=== PATIENT | female | born 1975 | race Caucasian/White ===

== ENCOUNTER 2020-10-21 06:06 | Observation (INO) ==
--- NOTE | 2020-10-04 15:55 | PAT Medication Instructions ---
Medication Instructions Date of Service October 04, 2020 Home Medications ibuprofen 600 mg PO Q6H PRN acetaminophen [Tylenol Extra Strength] 500 mg PO Q6H PRN multivitamin 1 tab PO QAM ASK your surgeon for instructions ibuprofen 600 mg PO Q6H PRN DO NOT take the morning of surgery multivitamin 1 tab PO QAM Take morning of surgery With a small sip of water, OTHERWISE NOTHING TO EAT OR DRINK AFTER MIDNIGHT: acetaminophen [Tylenol Extra Strength] 500 mg PO Q6H PRN (if needed, may be taken up to four hours before surgery) Take evening before surgery acetaminophen [Tylenol Extra Strength] 500 mg PO Q6H PRN (if needed) Other Notes If you have any questions please call us at [phone] or [phone] or [phone] or [phone]
--- NOTE | 2020-10-07 08:59 | Anesthesiology Consultation ---
Date of Service October 07, 2020 Assessment & Plan (1) Encounter for pre-operative examination: COVID Status: As of 10/07 assessment, patient denies travel to endemic area, known exposure/sick contacts, or symptoms of COVID19. Patient instructed that they and their household members must follow strict social distancing guidelines, wear a mask in public and avoid travel/events/gatherings for 14 days prior to surgery. Preoperative COVID19 testing to be completed prior to surgery per surgeon's arrangements (to be done at [facility] 10/14). Patient made aware to self- isolate as much as possible between COVID testing and surgery (pt will have to work after her COVID test and works at [employer]). Patient sent to ED for hypertensive emergency, as EKG showed possible ischemic changes. integration director notified. Wendy Ibanez notified. Event report completed. Patient evaluated in ED -- HTN felt largely 2/2 pain/anxiety. Given Dilaudid with significant improvement in BP. Referred to [facility] cardio, to be seen 10/08, and by PCP 10/09. Cardio Clearance 10/08/20 @ [facility] -- EKG done in office showed "sinus rhythm with T-wave abnormalities in the inferior and lateral leads that is most likely consistent with left ventricular hypertrophy from untreated hypertension...The patient will not be able to proceed to surgery until her blood pressure is better controlled. Albeit, some of her elevated blood pressure may be due to the pain and discomfort from her radiculopathy but she is still markedly hypertensive. " Started on Metoprolol 25mg daily. Echo ordered, to be done 10/16/20. PCP Clearance 10/09/20 @ [facility] -- "Once blood pressure is under better control, and Cardiology feels she is appropriate for surgery, I will provide clearance for her neck surgery to proceed. Lisinopril added to Metoprolol. This should help bring it down in conjunction with the other medication. I want her to get her BP rechecked in a week." Chart Review Chart Review: Acceptable Risk for Surgery (pending echo, final PCP and cardio clearances) and Patient seen in Pre Admission Testing Teaching & Discussion Instructed NPO after midnight before surgery, except medications with 15 cc of water. Medication instructions provided according to the PAT guidelines. History Surgery Operation Date: 10/21/20 11:10 Proposed Procedures p Anterior Cervical Discectomy Fusion - Chauncey Felipe, Height/Weight Height: 5 ft 1 in Weight: 104.9 kg Allergies Allergy/AdvReac Type Severity Reaction Status Date / Time Penicillins Allergy Mild RASH Unverified 10/07/20 12:46 Medications Home Medications Medication Instructions Recorded Confirmed Last Taken ibuprofen 600 mg PO Q6H PRN 09/01/20 10/07/20 08/31/20 22:00 600 acetaminophen [Tylenol Extra 500 mg PO Q6H PRN 10/04/20 10/07/20 Unknown Strength] multivitamin 1 tab PO QAM 10/04/20 10/07/20 Unknown docusate sodium [Colace] 100 mg PO BID #60 cap 10/07/20 Unknown oxycodone 5 mg PO Q6H PRN #14 tab 10/07/20 Unknown sennosides [Senokot] 8.6 mg PO HS #30 tab 10/07/20 10/07/20 Unknown lisinopril 5 mg PO DAILY 10/16/20 10/16/20 Unknown metoprolol succinate 25 mg PO DAILY 10/16/20 10/16/20 Unknown Past Medical History Medical History Cervical (neck) region somatic dysfunction Morbid obesity with BMI of 40.0-44.9, adult Exercise / Class Metabolic Activity II 4-5 Yardwork/Stairs/Walk up hill Past Family History Family History Other No family history of adverse response to anesthesia Past Surgical History Surgical History H/O arthroscopy of right knee H/O tubal ligation H/O wisdom tooth extraction History of colonoscopy History of endometrial ablation History of tonsillectomy Past Anesthesia History No Hx of Anesthesia Complications and No Family Hx of Anesthesia Complications History of PONV No Hx of PONV and No Hx of Motion Sickness STOP BANG Total 2 Social History Smoking Status: Former smoker Do You Dip or Chew Tobacco: No Smoking End Date: quit > 10 years ago Hx Alcohol Use: Yes alcohol intake frequency: holidays/special occasions only Hx Substance Use: No substance use type: does not use Review of Systems Pt denies any recent chest pain, shortness of breath, palpitations, cough, fever, URI, or uncontrolled acid reflux. Physical Exam Vital Signs BP: 191/118 (pt is admittedly nervous, denies any headache, blurred or altered vision) Will see PCP 10/09/20 for clearance. Rpt five mins later 179/125. Sent to ED for ischemic EKG changes. P: 88bpm SPO2: 96% RA T: 98.3 F R: 16 Constitutional + obese ENMT Mouth: + restricted motion of mouth (mouth does not open very far) and + small oral opening; no dental restorations, no chipped teeth and no loose teeth Thyromental Distance: > or= 3.5 Finger Breadths Mallampati Class: II Neck + thick neck and + limited neck extension Respiratory normal respiratory effort, lungs clear to auscultation Cardiovascular RRR, no murmur, no edema Testing Laboratory Results 10/07/20 09:16 10/07/20 09:16 PT 9.5 Seconds (9.0-12.0) 10/07/20 09:16 INR 0.9 (0.9-1.1) 10/07/20 09:16 APTT 25.5 Seconds (21.0-31.0) 10/07/20 09:16 Urine Color Yellow 10/07/20 09:16 Urine Appearance Clear (Clear) 10/07/20 09:16 Urine pH 6.0 (4.5-7.5) 10/07/20 09:16 Ur Specific [place] 1.013 (1.000-1.030) 10/07/20 09:16 Urine Protein Negative (Negative) 10/07/20 09:16 Urine Glucose (UA) Negative (Negative) 10/07/20 09:16 Urine Ketones Negative (Negative) 10/07/20 09:16 Urine Nitrite Negative (Negative) 10/07/20 09:16 Ur Leukocyte Esterase Negative (Negative) 10/07/20 09:16 Blood Type A Positive 10/07/20 09:16 Antibody Screen NEGATIVE 10/07/20 09:16 Electrocardiogram Date: 10/07/20 Findings: + NSR @ (82bpm) Normal sinus rhythm @ 83bpm. Rightward axis T wave abnormality, consider inferior ischemia. Prolonged QT. EKG done in ED 10/07/20 = NSR @ 82bpm with NSTWA. Chest X-Ray Date: 10/07/20 Findings: + NAD
[2020-10-07 10:08] LABS: Basophils # (auto) 0.02 K/uL (0-0.2); Basophils % (auto) 0.3 %; Eosinophils # (auto) 0.04 K/uL (0-0.5); Eosinophils % (auto) 0.6 %; Hematocrit (blood only) 40.8 % (37-47); Hemoglobin 13.7 g/dL (12.0-16.0); Immature Granulocytes # (auto) 0.01 K/uL (0.00-0.02); Immature Granulocytes % (auto) 0.1 %; Lymphocytes % (auto) 22.6 %; Mean Corpuscular Hgb Conc 33.6 g/dL (32-36); Mean Corpuscular Volume 86.3 fL (80-100); Mean Platelet Volume 9.9 fL (7.4-10.4); Monocytes % (auto) 7.1 %; Neutrophils # (auto) 4.91 K/uL (1.4-6.5); Neutrophils % (auto) 69.3 %; Platelet Count 341 K/uL (130-400); RDW Coefficient of Variation 12.9 % (11.5-14.5); RDW Standard Deviation 41.1 fL (36.4-46.3); Red Blood Count 4.73 M/uL (4.2-5.4); White Blood Count 7.08 K/uL (4.8-10.8)
[2020-10-07 10:12] LABS: Appearance Urine Clear (Clear); Bilirubin Urine Negative (Negative); Blood Urine Negative (Negative); Color Urine Yellow; Glucose Urine UA Negative (Negative); Ketones Urine Negative (Negative); Leukocyte Esterase Urine Negative (Negative); Nitrite Urine Negative (Negative); Protein Urine Negative (Negative); Specific Gravity Urine 1.013 (1.000-1.030); Urobilinogen Urine Negative (Negative)
[2020-10-07 10:14] LABS: BUN Creatinine Ratio 18.1 (10-20); Calcium 9.8 mg/dl (8.5-10.1); Creatinine Clr Calc Pharmacy 98.2 ml/min; Est GFR (African American) 103.3; Est GFR (Non-African American) 89.1; Potassium 3.7 mmol/L (3.5-5.1)
[2020-10-07 10:25] LABS: INR 0.9 (0.9-1.1); Partial Thromboplastin Time 25.5 Seconds (21.0-31.0); Prothrombin Time 9.5 Seconds (9.0-12.0)
--- NOTE | 2020-10-08 06:08 | Electrocardiogram Report ---
Test Reason : Blood Pressure : / mmHG Vent. Rate : 083 BPM Atrial Rate : 083 BPM P-R Int : 174 ms QRS Dur : 082 ms QT Int : 400 ms P-R-T Axes : 022 094 -44 degrees QTc Int : 470 ms Normal sinus rhythm Rightward axis T wave abnormality, consider inferior ischemia Prolonged QT Abnormal ECG No previous ECGs available Confirmed by Casimiro Garcia ([id number]) on 10/08/2020 6:08:14 AM Referred By: Chauncey Felipe Confirmed By:Casmiiro Garcia
[~2020-10-21 06:06] MED LIST: ACETAMINOPHEN 500 MG TAB PO SCH; CLINDAMYCIN/D5W 600 MG/54 ML BAG IV SCH; CeleBREX 200 MG CAP PO SCH; GABAPENTIN 900 MG DOSE PO SCH; LR 15ML/HR IV SCH
[2020-10-21] MEDS ORDERED: PROPOFOL IV EMULSION 10 MG/ML 20 ML VIAL IV ONE (06:53)
[2020-10-21] MEDS ORDERED: ROCURONIUM BROMIDE 10 MG/ML 5 ML VIAL IV ONE (06:53)
[2020-10-21] MEDS ORDERED: DEXAMETHASONE SOD INJ 4 MG/ML VIAL ONE (06:53)
[2020-10-21] MEDS ORDERED: ONDANSETRON INJ 2 MG/ML 2 ML VIAL ONE (06:53)
[2020-10-21] MEDS ORDERED: MIDAZOLAM HCL 1 MG/ML 2ML VIAL ONE (06:53)
[2020-10-21] MEDS ORDERED: LIDOCAINE 2% 2 ML VIAL/AMP(20MG/ML) INFIL ONE (06:53)
[2020-10-21] MEDS ORDERED: fentaNYL citrate 100 MCG/2 ML VIAL ONE (06:53)
[2020-10-21] MEDS ORDERED: PROPOFOL IV EMULSION 10 MG/ML 100 ML VIAL IV ONE (07:04)
--- NOTE | 2020-10-21 07:34 | History & Physical Bridge Note ---
Date of Service October 21, 2020 History & Physical Bridge Note I have examined the patient, reviewed the History & Physical and in the interval since the performance of the History & Physical I have noted the following changes of clinical significance: no changes noted
--- NOTE | 2020-10-21 07:35 | History & Physical Report ---
Date of Service October 21, 2020 Assessment & Plan (1) Herniation of cervical intervertebral disc with radiculopathy: Admission and Anticipated Discharge Date Admission Date: C6-C7 anterior cervical discectomy and fusion History of Present Illness Chief Complaint: Neck and arm pain Primary Care Provider: Nick Gerard PA-C This is a 45-year-old female presents with chronic persistent neck and arm pain after failing extensive course of nonoperative care is here for surgical invention. Allergies Allergy/AdvReac Type Severity Reaction Status Date / Time Penicillins Allergy Mild RASH Unverified 10/21/20 06:35 Home Medications Medication Instructions Recorded Confirmed Type ibuprofen 600 mg PO Q6H PRN 09/01/20 10/21/20 History acetaminophen [Tylenol Extra 500 mg PO Q6H PRN 10/04/20 10/21/20 History Strength] multivitamin 1 tab PO QAM 10/04/20 10/21/20 History docusate sodium [Colace] 100 mg PO BID #60 cap 10/07/20 10/21/20 Rx oxycodone 5 mg PO Q6H PRN #14 tab 10/07/20 10/21/20 Rx sennosides [Senokot] 8.6 mg PO HS #30 tab 10/07/20 10/21/20 Rx lisinopril 5 mg PO DAILY 10/16/20 10/21/20 History metoprolol succinate 25 mg PO DAILY 10/16/20 10/21/20 History Past Med/Surg History Medical History Cervical (neck) region somatic dysfunction Morbid obesity with BMI of 40.0-44.9, adult Surgical History H/O arthroscopy of right knee H/O tubal ligation H/O wisdom tooth extraction History of colonoscopy History of endometrial ablation History of tonsillectomy Family History Other No family history of adverse response to anesthesia Social History Smoking Status: Former smoker Tobacco Type: Cigarettes Smoking End Date: quit > 10 years ago; Second Hand Exposure: No; Do You Dip or Chew Tobacco: No; Tobacco Cessation Education Requested by Patient: No Hx Alcohol Use: Yes Hx Substance Use: No Preferred Language: Sinhala Communication Ability: Effective Motion Picture Scene Builder Required: No Beliefs That Will Affect Care: None Current Living Situation: Spouse Feels Safe at Home: Yes Safety Concerns: Feels Safe At This Time Assistive Devices: None Physical Exam Physical Exam: Patient is alert and oriented Heart regular rate and rhythm Lungs clear to auscultation Results & Data ([facility]) Vital Signs (Past 12 Hours) Vital Signs Temp Pulse Resp BP Pulse Ox 10/21/20 06:55 36.8 C 78 20 148/91 H 99
[2020-10-21] MEDS ORDERED: ceFAZolin 330 MG/ML 1 GM VIAL ONE (07:36)
[2020-10-21] MEDS ORDERED: CLINDAMYCIN PHOS 300 MG/2 ML VIAL ONE (08:19)
[2020-10-21] MEDS ORDERED: ePHEDrine sulfate 50 MG/ML AMP IV PRN (08:19)
[2020-10-21] MEDS ORDERED: HYDROmorphone INJ 1 MG/ML SYRINGE IV PRN ×2 (08:19→11:25)
[2020-10-21] MEDS ORDERED: fentaNYL citrate 100 MCG/2 ML VIAL IV PRN (08:19)
[2020-10-21] MEDS ORDERED: ATROPINE SULFATE 0.1 MG/ML 10ML SYR IV PRN (08:19)
[2020-10-21] MEDS ORDERED: FLUMAZENIL 0.1 MG/1 ML 10 ML VIAL IV PRN (08:19)
[2020-10-21] MEDS ORDERED: ONDANSETRON INJ 2 MG/ML 2 ML VIAL IV PRN ×2 (08:19→11:25)
[2020-10-21] MEDS ORDERED: LABETALOL HCL IV 5 MG/ML 20ML IV PRN (08:19)
[2020-10-21] MEDS ORDERED: NALOXONE HCL 0.4 MG/1 ML VIAL/CARP IV PRN ×2 (08:19→11:25)
[2020-10-21] MEDS ORDERED: ePHEDrine sulfate 50 MG/ML AMP ONE (08:19)
[2020-10-21] MEDS ORDERED: PROMETHAZINE HCL 12.5 MG in SODIUM CHLORIDE 0.9% 50 ML IV PRN ×2 (08:19→11:25)
[2020-10-21] MEDS ORDERED: HYDROmorphone INJ 2 MG/ML SYR/VIAL ONE (08:20)
[2020-10-21] MEDS ORDERED: FLOSEAL HEMOSTATIC MATRIX 10ML TOP ONE (08:51)
[2020-10-21] MEDS ORDERED: NEOSTIGMINE METHYLSULFATE 1 MG/ML 10ML VIAL ONE (09:06)
[2020-10-21] MEDS ORDERED: GLYCOPYRROLATE 0.2 MG/ML VIAL ONE (09:06)
--- NOTE | 2020-10-21 09:10 | Operative Report ---
Post Operative Report Pre & Post Diagnosis Operation Date: 10/21/20 07:45 Pre-Op Diagnosis: Spinal Stenosis, Cervical Region Post-Op Diagnosis: Spinal Stenosis, Cervical Region I identified the patient and participated in the time-out.: Yes Procedure Operation Date: 10/21/20 07:45 Actual Procedures #1 anterior cervical discectomy with bilateral foraminotomies C6-C7. #2 anterior cervical arthrodesis C6-C7. #3 placement of 8 mm Spira filled with I factor at C6-C7. #4 application of 5 complete screws across C6-C7. Surgeon Chauncey Felipe, DO Radiopharmacist Cristin Pelletier Estimated Blood Loss 20 Findings See Below The patient is 5 foot 1 inches tall weighing over 103 kg with a BMI in excess of 43. The patient's body habitus did contribute to significant technical difficulty from positioning to exposure. This at least 50% increase to the operative time. Specimens None Indications This is a 45-year-old female presents with above-mentioned diagnosis after failing course of nonoperative care is here for the above-mentioned procedure. Description of Procedure Patient met with identified informed consent obtained. Patient was then taken to the operative suite underwent a patient placed in supine position Chauncey table head Orellana head R. All bony prominences well-padded eyes inspected to ensure no external pressure placed upon the. This point the anterior cervical spine was prepped and draped in a sterile fashion. With assistance of fluor oscopy identified the C6-C7 displacement transverse incision was placed over the right anterior aspect of the cervical spinal lines region. Sharp dissection with assistance of bipolar electrocautery performed down to and exposing the anterior cervical spine at C6 and C7. Self-retaining retractors placed. Then performed a complete discectomy of C6-C7 out to the uncovertebral joints bilaterally. [place] distraction pins were utilized to assist in visualization. Removed all posterior annular fibers longitudinal ligament bilateral foraminotomies performed. Endplates were then burred to subcortically bone and an 8 mm spiral cage filled with I factor tapped in position. Distracting apparatus was removed and a 5 complete and screws applied with the assistance of fluoroscopy. Incision was then copiously irrigated explored to ensure no damage to surrounding structures remaining bleeding. 10 round MECCA drain inserted. Incision was then closed with 2 Vicryl in the fascia and 4 Monocryl for final skin closure. Steri-Strips dressings placed. Patient will continue PACU stable condition. Please note spinal cord monitoring was utilized at the procedure no changes noted. Lastly Cristin Pelletier was present at the entire surgery involved the patient positioning complex portions of the surgery and final skin closure. I attest to the content of the Intraoperative Record and any orders documented therein. Any exceptions are noted below.
--- NOTE | 2020-10-21 09:30 | Fluoroscopy Report ---
FL cervical 2-3V CLINICAL HISTORY: ACDF C6-C7 COMPARISON STUDY: None. FLUOROSCOPY TIME: 17 seconds. FINDINGS: 2 fluoroscopic spot images of the cervical spine demonstrate anterior cervical discectomy a nd fusion at C6-C7. The hardware appears intact. IMPRESSION: Fluoroscopy provided for C6-C7 ACDF. ACT 112: Negative or not required by law. Electronically signed by: Ghulam Briggs M.D. 10/21/2020 9:29 AM
--- NOTE | 2020-10-21 10:45 | Anesthesiology Progress Note ---
Date of Service October 21, 2020 Anesthesia Post Procedure Vital Signs Vital Signs: Temp Pulse Pulse Resp BP BP Pulse Ox 10/21/20 10:35 36.5 C 69 16 141/82 H 96 10/21/20 10:25 64 16 151/95 H 96 10/21/20 10:15 64 14 151/88 H 94 10/21/20 10:05 69 20 154/92 H 95 10/21/20 09:55 78 24 171/91 H 96 10/21/20 09:45 75 24 161/97 H 97 10/21/20 09:35 91 H 15 170/92 H 95 10/21/20 09:29 37 C 98 H 14 164/113 H 98 10/21/20 06:55 36.8 C 78 20 148/91 H 99 Pain Intensity Right Arm: Pain Intensity: 7 Transfer of Care Handoff Completed per policy Notes Mental Status: alert / awake / arousable Patient Amnestic to Procedure: Yes Nausea / Vomiting: adequately controlled Pain: adequately controlled Airway Patency, RR, SpO2: stable & adequate BP & HR: stable & adequate Hydration State: stable & adequate Anesthetic Complications: no major complications apparent
[2020-10-21] MEDS ORDERED: METOCLOPRAMIDE HCL INJ 5 MG/ML 2 ML VIAL IV PRN (11:25)
[2020-10-21] MEDS ORDERED: ONDANSETRON 4 MG OD TAB PO PRN (11:25)
[2020-10-21] MEDS ORDERED: LORazepam 0.5 MG/1 ML VIAL IV PRN (11:25)
[2020-10-21] MEDS ORDERED: diphenhydrAMINE Capsule 25 MG CAP PO PRN (11:25)
[2020-10-21] MEDS ORDERED: HYDROmorphone INJ 0.5 MG/0.5 ML SYR IV PRN (11:25)
[2020-10-21] MEDS ORDERED: ALUMINUM/MAGNESIUM SUSP 30 ML UDC PO PRN (11:25)
[2020-10-21] MEDS ORDERED: DO NOT ADMINISTER PNEUMOCOCCAL VACCINE PRN (11:25)
[2020-10-21] MEDS ORDERED: RACEPINEPHRINE 2.25% NEBU SOLN 0.5 ML VIAL INH PRN (11:25)
[2020-10-21] MEDS ORDERED: DO NOT ADMINISTER FLU VACCINE PRN (11:25)
[2020-10-21] MEDS ORDERED: dexAMETHasone 8 MG in SYRINGE 0 ML IV PRN (11:25)
[2020-10-21] MEDS ORDERED: ACETAMINOPHEN 500 MG TAB PO PRN (11:25)
[2020-10-21] MEDS ORDERED: SOD PHOSPHATE/SOD BIPHOSPHATE ENEMA 132 ML BTL PR PRN (11:25)
[2020-10-21] MEDS ORDERED: hydrOXYzine HCl 25 MG TAB PO PRN (11:25)
[2020-10-21] MEDS ORDERED: MAGNESIUM HYDROXIDE SUSP 30 ML UDC PO PRN (11:25)
[2020-10-21] MEDS ORDERED: FAMOTIDINE 20 MG TAB PO PRN (11:25)
[2020-10-21] MEDS ORDERED: LORazepam 0.5 MG TAB PO PRN (11:25)
[2020-10-21] MEDS ORDERED: ACETAMINOPHEN 1,000 MG/100 ML VIAL IV PRN (11:25)
[2020-10-21] MEDS ORDERED: traMADol HCL 50 MG TABLET PO PRN (11:25)
[2020-10-21] MEDS: LACTATED RINGER'S 1,000 ML IV SCH ×3 (11:32→23:20)
--- NOTE | 2020-10-21 12:44 | Hospitalist Consultation ---
Date of Consultation October 21, 2020 Assessment & Plan (1) Herniation of cervical intervertebral disc with radiculopathy: - Pain management, bowel regimen per the primary team - PT/OT consults - Follow am CBC to monitor for acute blood loss - Maintain cervical collar and MECCA drain per the primary team (2) Hypertension: - Continue lisinopril 5 mg PO daily, metoprolol succinate 25 mg PO daily starting tomorrow morning. May use half dose metoprolol tartrate tonight if BP elevated, otherwise monitor. - Pain control will help to reduce (3) Morbid obesity with BMI of 40.0-44.9, adult: - Diet and exercise regimen to be encouraged postoperatively to help improve BP overall - Continue multivitamin DVT ppx: teds, ambulatory Thank you for involving us in the care of Mrs. Triana. Please do not hesitate to call with questions or concerns. At this time medicine service will follow along. Supervising Physician Co-Signing Physician Notes I saw this patient with the physician legal executive assistant, I participated in the history, physical, review of systems, and physical exam on this consult. I reviewed the medications with the patient and the physician legal executive assistant. I helped take a detailed family and social history as well. I formulated the assessment and plan personally with the physician legal executive assistant and went over it with the patient. Physical Exam Gen-AAO x 3, NAD, Afebrile, obese, +Neck Collar and MECCA drain Head-NCAT, EOMI, PERRLA, Anicteric Sclera, No Posterior Pharyngeal Erythema Neck-Supple, No JVD, No Thyromegaly, No Masses, No LAD, No Bruits Lungs-Clear to Auscultation Bilaterally, No Rales, No Rhonchi, No Wheezing, No Crepitus Chest-No S4, +S1, +S2, No S3, No Murmurs, No Rubs, No Gallops, No Ectopy Abdomen-Soft, Bowel Sounds Present, Non Tender, Non Distended, No Hepatomegaly, No Splenomegaly, No Palpable Masses, No Rebound, No Rigidity, No Guarding Musculoskeletal-Full Range of Motion Bilaterally, No CVAT Extremities-No Cyanosis, No Clubbing, No Edema Nuero-Cranial Nerves II-XII grossly intact, Motor WNL, DTRs WNL, Strength WNL, Non Focal Psych-Normal Mood History of Present Illness Reason for Consultation: Medical management Requesting Physician: Dr. Felipe Attending Physician: Chauncey Felipe, DO History of Present Illness This is a 45 yo F with PMHx of HTN and morbid obesity, BMI of 43.1 who presented for elective C6-C7 anterior cervical decompression fusion on 10/21/[address] Felipe. Pt is doing well. She already notes that her right arm pain and right thumb, pointer and middle finger are significantly less numb now than prior to surgery. She was having difficulty picking up objects and specifically moving her arm t owards her head prior to this. Pt has lunch in front of her, has not tried food/water yet. Pt feels as if she needs to urinate soon. Denies other acute complaints. She did not take morning blood pressure medications today as instructed. Allergies Allergy/AdvReac Type Severity Reaction Status Date / Time Penicillins Allergy Mild RASH Unverified 10/21/20 06:35 Home Medications Medication Instructions Recorded Confirmed Type ibuprofen 600 mg PO Q6H PRN 09/01/20 10/21/20 History acetaminophen [Tylenol Extra 500 mg PO Q6H PRN 10/04/20 10/21/20 History Strength] multivitamin 1 tab PO QAM 10/04/20 10/21/20 History docusate sodium [Colace] 100 mg PO BID #60 cap 10/07/20 10/21/20 Rx oxycodone 5 mg PO Q6H PRN #14 tab 10/07/20 10/21/20 Rx sennosides [Senokot] 8.6 mg PO HS #30 tab 10/07/20 10/21/20 Rx lisinopril 5 mg PO DAILY 10/16/20 10/21/20 History metoprolol succinate 25 mg PO DAILY 10/16/20 10/21/20 History oxycodone 5 mg PO Q6H PRN #20 tab 10/21/20 Rx tramadol 50 mg PO Q6H PRN #20 tab 10/21/20 Rx Patient History Medical History (Updated 10/21/20 @ 13:22 by Sveta Sanchez PA-C) Cervical (neck) region somatic dysfunction Morbid obesity with BMI of 40.0-44.9, adult Surgical History H/O arthroscopy of right knee H/O tubal ligation H/O wisdom tooth extraction History of colonoscopy History of endometrial ablation History of tonsillectomy Family History Other No family history of adverse response to anesthesia Social History Smoking Status: Former smoker Tobacco Type: Cigarettes Smoking End Date: quit > 10 years ago; Second Hand Exposure: No; Do You Dip or Chew Tobacco: No; Tobacco Cessation Education Requested by Patient: No Hx Alcohol Use: Yes Hx Substance Use: No Preferred Language: French Communication Ability: Effective Medical Office Secretary Required: No Beliefs That Will Affect Care: None Current Living Situation: Spouse Feels Safe at Home: Yes Safety Concerns: Feels Safe At This Time Assistive Devices: None Review of Systems Review of Systems: Constitutional: No fever, sweats or chills Eyes: No diplopia, no worsening or blurred vision ENT: normal hearing, no trouble swallowing Neck: no pain, in brace Respiratory: No cough, sputum, dyspnea at rest or on exertion Cardiovascular: No chest pain, tightness or palpitations Abdomen: No pain, nausea, vomiting, diarrhea or constipation Musculoskeletal: No joint pain, calf pain, swelling Neurologic: No weakness, numbness/tingling, or balance problems Psychiatric: No anxiety or depression Skin: No rash or itch Physical Exam Physical Exam: General: awake, alert, no apparent distress, morbidly obese with BMI of 43.1 Head: Normocephalic, atraumatic Neck: Cervical brace in place keeping head in position, MECCA drain in place draining serosanguineous fluid. ENT: PERRL, EOMI, no pharyngeal exudate, mucous membranes moist Chest: Clear to auscultation, on 2 L via NC, no adventitious breath sounds Cardiac: Regular rate and rhythm, no murmur, no JVD, normal peripheral pulses, good capillary refill Abdominal: + obese, NABS x 4 quadrants, soft, nondistended, nontender to palpation, no rebound or guarding Extremities: Normal inspection, no peripheral edema or erythema, calfs nontender to palpation Psych: Normal mood and affect Neuro: AAO x 3, strength intact bilaterally and rated 5/5, no motor deficits, speech is clear, no peripheral sensory deficits Results & Data Results & Data ([place]) Vital Signs (Past 12 Hours) Vital Signs Temp Pulse Pulse Resp BP BP Pulse Ox 10/21/20 11:14 64 18 98 10/21/20 10:35 36.5 C 69 16 141/82 H 96 10/21/20 10:25 64 16 151/95 H 96 10/21/20 10:15 64 14 151/88 H 94 10/21/20 10:05 69 20 154/92 H 95 10/21/20 09:55 78 24 171/91 H 96 10/21/20 09:45 75 24 161/97 H 97 10/21/20 09:35 91 H 15 170/92 H 95 10/21/20 09:29 37 C 98 H 14 164/113 H 98 10/21/20 06:55 36.8 C 78 20 148/91 H 99 (1) Hypertension Hypertension type: unspecified Qualified Code(s): I10 - Essential (primary) hypertension
[2020-10-21] MEDS: oxyCODONE HCL IR 5 MG TAB (IMMEDIATE RELEASE) PO PRN ×2 (12:48→23:23)
[2020-10-21] MEDS: CLINDAMYCIN 600 MG in DEXTROSE 5% 50 ML IV SCH ×2 (15:21→23:20)
[2020-10-21] MEDS ORDERED: METOPROLOL TARTRATE 25 MG TAB PO ONE (18:45)
[2020-10-21] MEDS ORDERED: DOCUSATE SODIUM/SENNA 50/8.6MG TAB PO SCH (21:00)
[2020-10-21] MEDS ORDERED: SENNA 8.6 MG TAB PO SCH (21:00)
[2020-10-21] MEDS: DOCUSATE SODIUM 100 MG CAP PO SCH (21:10)
[2020-10-22] MEDS: oxyCODONE HCL IR 5 MG TAB (IMMEDIATE RELEASE) PO PRN ×2 (03:20→10:08)
[2020-10-22] MEDS ORDERED: POLYETHYLENE (MIRALAX) 17 GM PACK PO SCH (06:00)
[2020-10-22 07:32] LABS: Basophils # (auto) 0.01 K/uL (0-0.2); Basophils % (auto) 0.1 %; Eosinophils # (auto) 0.01 K/uL (0-0.5); Eosinophils % (auto) 0.1 %; Hematocrit (blood only) 38.9 % (37-47); Hemoglobin 13.1 g/dL (12.0-16.0); Immature Granulocytes # (auto) 0.03 K/uL (0.00-0.02); Immature Granulocytes % (auto) 0.2 %; Lymphocytes # (auto) 1.91 K/uL (1.2-3.4); Lymphocytes % (auto) 13.7 %; Mean Corpuscular Hemoglobin 29.2 pg (25-34); Mean Corpuscular Hgb Conc 33.7 g/dL (32-36); Mean Corpuscular Volume 86.6 fL (80-100); Mean Platelet Volume 10.1 fL (7.4-10.4); Monocytes # (auto) 0.76 K/uL (0.11-0.59); Monocytes % (auto) 5.5 %; Neutrophils # (auto) 11.19 K/uL (1.4-6.5); Neutrophils % (auto) 80.4 %; Platelet Count 306 K/uL (130-400); RDW Coefficient of Variation 13.4 % (11.5-14.5); RDW Standard Deviation 42.8 fL (36.4-46.3); Red Blood Count 4.49 M/uL (4.2-5.4); White Blood Count 13.91 K/uL (4.8-10.8)
[2020-10-22 08:10] LABS: BUN Creatinine Ratio 14.6 (10-20); Calcium 9.2 mg/dl (8.5-10.1); Creatinine Clr Calc Pharmacy 96.2 ml/min; Est GFR (African American) 101.8 ml/min; Est GFR (Non-African American) 87.8 ml/min; Potassium 4.4 mmol/L (3.5-5.1)
[2020-10-22] MEDS: DOCUSATE SODIUM 100 MG CAP PO SCH (08:43)
[2020-10-22] MEDS ORDERED: METOPROLOL SUCC 25MG EXT REL TAB PO SCH (09:00)
[2020-10-22] MEDS ORDERED: lisinopril 5 MG TAB PO SCH (09:00)
[2020-10-22] MEDS ORDERED: MULTIVITAMIN TAB PO SCH (09:00)
[2020-10-22] MEDS ORDERED: dexAMETHasone 8 MG in SYRINGE 0 ML IV STA (09:10)
--- NOTE | 2020-10-22 09:13 | Discharge Summary ---
Date of Service October 22, 2020 Admission HPI Per Admitting Provider This is a 45-year-old female presents with chronic persistent neck and arm pain after failing extensive course of nonoperative care is here for surgical invention. Principal Diagnosis Cervical disc herniation with radiculopathy Discharge Data Allergies Allergy/AdvReac Type Severity Reaction Status Date / Time Penicillins Allergy Mild RASH Unverified 10/21/20 06:35 Consultations 10/21/20 11:25 Consult Hospitalist Routine Procedures Performed Operation Date: 10/21/20 07:45 Actual Procedures p C6-C7 Anterior Cervical Discectomy Fusion(Not Applicable) - Chauncey Felipe DO Ordered Studies 10/21/20 07:45 FL cervical 2-3V Routine Hospital Course (1) Herniation of cervical intervertebral disc with radiculopathy: Patient went anterior cervical discectomy and fusion tolerated well second orthopedic for postop bleed. Postop day 1 she was swallowing well. No hoarseness. MECCA drain decreasing probably. Excellent strength testing. Socially discharged home. Discharge orders and instructions found in the chart for further review. Total Time Total Time Spent Total Time Spent (In Minutes): 20 minutes Discharge Plan Discharge Items Patient Disposition: Home - Self-Care Reason For Visit: Spinal Stenosis, Cervical Region Discharge Diagnosis: Cervical radiculopathy Activity: As commented below Non-emergency contact: Primary Care Provider Call non-emergency contact if: you have any medication questions Follow-up/Referrals: Nick Gerard PA-C [Primary Care Provider] - Diet: Regular Addtl Attending Provider Instructions: ACTIVITY RECOMMENDATIONS: SELF CARE INSTRUCTIONS AFTER CERVICAL FUSIONS 1. No smoking. Smoking drastically decreases the chance of a solid fusion. 2. No bending, lifting more than 5 pounds, or twisting (roll like a log when turning in bed). 3. You may shower 3 days after surgery. Thoroughly dry wound. Do not soak in the tub. 4. Cervical collar: Must be worn at all times including sleeping. You may remove the brace only to bath, eat and if you are sitting in a recliner. 5. Please walk as much as you can for exercise. Gradually increase the distance that you walk as your endurance increases. SPECIAL CARE INSTRUCTIONS: VERY IMPORTANT TO READ AND REVIEW A. Do not take any anti-inflammatory medications (i.e. Indocin, Advil, Aspirin, Naprosyn, Aleve, Motrin, etc.) as these may inhibit the chance of a solid fusion. Tylenol is okay to take. B. Your surgical incision has been closed with a cosmetic suture under the skin that will dissolve in about 6 weeks. In 14 days, you can use a pair of clean scissors and cut the suture that is left outside of the skin at the ends of your incision. C. Complications are uncommon, but please contact us if you have any signs or symptoms of: 1. wound infection (fever higher than 102.5 degrees F, redness, separation of wound, drainage, or increasing pain from the incision) 2. blood clots in legs (pain, swelling, redness and warmth in legs) 3. urinary tract infection (fever higher than 102.5 degrees, burning upon urination or increased frequency of urination) 4. nerve problems (inability to walk on your toes or heels, numbness, loss of bowel or bladder control) 5. any other symptoms that concern you. D. Please call the office at if you have any concerns or questions about your operation or recovery. MANAGING PAIN AFTER SPINAL SURGERY 1. Narcotic medication is intended for short-term use and will be provided for surgical pain. Surgical pain usually lasts for a period of 4-6 weeks. Narcotic medication includes Percocet, Vicodin, Darvocet, Tylenol #3 or Lortab. 2. Longer-term pain is more appropriately treated with non-narcotic medication such as Tylenol ES. 3. Muscle spasm is not appropriately treated with narcotics. Muscle relaxers such as Soma, Flexeril or Skelaxin can be used along with Tylenol ES. 4. Remember that we all live with some "aches and pains". This is not unusual or uncommon after an injury or as we get older. 5. We will provide appropriate medication within the normal guidelines of their prescribed use. We will also be very cautious and aware of potential abuse and extended duration of patients' medication needs. 6. Please allow 2-3 days to process refills. Prescriptions will not be mailed but must be picked up at the office. FOLLOW UP VISIT: Keep your scheduled follow-up appointment. Any questions, please call the office at . Pending Studies at Discharge: No Stand-Alone Forms: [employer], Smoking Cessation Medications and DC Order Prescriptions: New tramadol 50 mg tablet 50 mg PO Q6H PRN (Reason: pain, moderate) Qty: 20 RF: 0 oxycodone 5 mg tablet 5 mg PO Q6H PRN (Reason: pain, severe) Qty: 20 RF: 0 Continued ibuprofen 200 mg Tablet 600 mg PO Q6H PRN (Reason: Pain) RF: 0 multivitamin Tablet 1 tab PO QAM RF: 0 acetaminophen [Tylenol Extra Strength] 500 mg Tablet 500 mg PO Q6H PRN (Reason: Pain) RF: 0 lisinopril 5 mg Tablet 5 mg PO DAILY RF: 0 metoprolol succinate 25 mg Capsule,Sprinkle,Er 24hr 25 mg PO DAILY RF: 0 oxycodone 5 mg tablet 5 mg PO Q6H PRN (Reason: pain) Qty: 14 RF: 0 sennosides [Senokot] 8.6 mg tablet 8.6 mg PO HS Qty: 30 RF: 0 docusate sodium [Colace] 100 mg capsule 100 mg PO BID Qty: 60 RF: 0 Discharge Orders: Discharge Order (Routine); Ordered 10/22/20 Ordered By: Chauncey Felipe Admission Data Admit Date/Time: 10/21/20 09:38 Attending Provider: Chauncey Felipe Admit Provider: Chauncey Felipe Primary Care Provider: Nick Gerard Other Providers: Chapincito Devine
[2020-10-22 09:24] VITALS: BP 129/78; TEMP 98.2
[2020-10-22 11:33] VITALS: PULSE 83; O2SAT 98
[2020-10-23] MEDS ORDERED: bisacodyL 10 MG SUPP PR PRN (09:11)
== END 2020-10-22 11:40 | disposition home or self-care (01) ==
LOC: ASU 06:06 → 3E 09:38 → INTOOBSV 09:38